=== PATIENT | male | born 1990 | race Caucasian/White ===

== ENCOUNTER 2016-06-29 23:36 | Emergency (ER) | payer SELFPAY ==
[~2016-06-29] VITALS: Ht 182.8 cm; Wt 79.4 kg
[~2016-06-29 23:36] MED LIST: CLEOCIN150 MG PO; MOTRIN800 MG PO; Motrin,Rufen800 MG PO; NAPROSYN500 MG PO; NKHM; NORCO 325 MG-51 TAB PO; PERIDEX 480 ML480 ML PO; ROBAXIN500 MG PO; ROBITUSSIN DM120 ML PO; ULTRAM50 MG PO; ZITHROMAX Z PA250 MG PO
[2016-06-30] MEDS ORDERED: CLINDAMYCIN HC300 MG PO (01:00)
== END 2016-06-30 02:00 | disposition home or self-care (01) ==
LOC: ED 23:36
DX: K04.7 Periapical abscess without sinus (principal); F17.200 Nicotine dependence, unspecified, uncomplicated; Z88.0 Allergy status to penicillin

== ENCOUNTER 2017-02-04 19:06 | Emergency (ER) | payer OTHER ==
[~2017-02-04] VITALS: Ht 182.8 cm; Wt 81.6 kg
[~2017-02-04 19:06] MED LIST changes: +CLINDAMYCIN HC300 MG PO
[2017-02-04] MEDS ORDERED: NAPROSYN500 MG PO (19:58)
[2017-02-04] MEDS ORDERED: CYCLOBENZAPRINE10 MG PO (19:58)
== END 2017-02-04 22:09 | disposition home or self-care (01) ==
LOC: ED 19:06
DX: S39.012A Strain of muscle, fascia and tendon of lower back, initial encounter (principal); F17.200 Nicotine dependence, unspecified, uncomplicated; Z88.0 Allergy status to penicillin; V49.9XXA Car occupant (driver) (passenger) injured in unspecified traffic accident, initial encounter; Y93.89 Activity, other specified; Y92.89 Other specified places as the place of occurrence of the external cause; Y99.8 Other external cause status

== ENCOUNTER 2017-07-10 18:36 | Emergency (ER) | payer OTHER ==
[~2017-07-10] VITALS: Ht 182.8 cm; Wt 79.4 kg
[~2017-07-10 18:36] MED LIST changes: +CYCLOBENZAPRINE10 MG PO
[2017-07-10] MEDS ORDERED: CLINDAMYCIN HC300 MG PO (20:45)
== END 2017-07-10 21:02 | disposition home or self-care (01) ==
LOC: ED 18:36
DX: K04.7 Periapical abscess without sinus (principal); F17.200 Nicotine dependence, unspecified, uncomplicated; Z88.0 Allergy status to penicillin

== ENCOUNTER 2018-10-07 16:46 | Emergency (ER) | payer SELFPAY ==
[~2018-10-07] VITALS: Ht 182.8 cm; Wt 80.3 kg
[~2018-10-07 16:46] MED LIST changes: +CARAFATE1 G1 PO; +SUNMARK OMEPRAZ20 M1 PO; +ZANTAC 150150 MG PO; +ZOFRAN4 MG PO
[2018-10-07] MEDS ORDERED: NAPROSYN500 MG PO (17:50)
[2018-10-07] MEDS ORDERED: CLINDAMYCIN HC300 MG PO (17:50)
== END 2018-10-07 17:55 | disposition home or self-care (01) ==
LOC: ED 16:46
DX: K04.7 Periapical abscess without sinus (principal); K02.9 Dental caries, unspecified; Z88.0 Allergy status to penicillin

== ENCOUNTER 2018-12-16 15:13 | Emergency (ER) | payer SELFPAY ==
[~2018-12-16] VITALS: Ht 182.8 cm; Wt 79.4 kg
== END 2018-12-16 17:06 | disposition home or self-care (01) ==
LOC: ED 15:13
DX: S90.32XA Contusion of left foot, initial encounter (principal); F17.200 Nicotine dependence, unspecified, uncomplicated; Z88.0 Allergy status to penicillin; Z79.899 Other long term (current) drug therapy; X50.1XXA Overexertion from prolonged static or awkward postures, initial encounter; Y93.89 Activity, other specified; Y92.89 Other specified places as the place of occurrence of the external cause; Y99.8 Other external cause status